=== PATIENT | female | born 1960 | race Caucasian/White ===

== ENCOUNTER 2016-05-04 17:26 | Emergency (ER) | payer MEDICAID ==
[~2016-05-04] VITALS: Ht 170.2 cm; Wt 56.7 kg
[~2016-05-04 17:26] MED LIST: LORA2TAB PO; QUET300T2 PO
--- NOTE | 2016-05-04 18:17 | NUR ---
PT IS IN ROOM #2B WAITING FOR ER MD EVALUATION.
[2016-05-04] MEDS ORDERED: CEFTRIAXONE 500 MG VIAL IM ONE (18:30)
[2016-05-04] MEDS ORDERED: AZITHROMYCIN 250 MG TABLET PO ONE (18:30)
--- NOTE | 2016-05-04 18:46 | NUR ---
PT WAS D/C TO HOME. D/C INSTRUCTIONS GIVEN TO THE PT.
[2016-05-04 18:47] VITALS: BP 135/78
[2016-05-04] MEDS ORDERED: AZITHROMYCIN 250 MG TABLET ONE (18:47)
[2016-05-04] MEDS ORDERED: CEFTRIAXONE 1 G VIAL ONE (18:48)
[2016-05-04] MEDS ORDERED: LIDOCAINE HCL 2% 20 ML VIAL ONE (18:48)
== END 2016-05-04 18:47 | disposition home or self-care (01) ==
LOC: ER 17:31
DX: F41.9 Anxiety disorder, unspecified (principal); F10.20 Alcohol dependence, uncomplicated; F19.10 Other psychoactive substance abuse, uncomplicated; Z88.6 Allergy status to analgesic agent
CPT/HCPCS: 96372; 99284; A4663; J0696; J3490; Q0144

== ENCOUNTER 2017-03-03 14:14 | Emergency (ER) | payer OTHER ==
[~2017-03-03] VITALS: Ht 170.2 cm; Wt 51.3 kg
--- NOTE | 2017-03-03 14:20 | NUR ---
Patient says that she lost her prescription & the empty bottles for ativan & restoril. MD to evaluate at this time.
--- NOTE | 2017-03-03 15:26 | NUR ---
Patient discharged to home in stable conditon. Written and verbal after care instructions given to patient. Patient verbalizes understanding of instructions.
== END 2017-03-03 15:28 | disposition home or self-care (01) ==
LOC: ER 14:15
DX: Z76.0 Encounter for issue of repeat prescription (principal); F41.9 Anxiety disorder, unspecified
CPT/HCPCS: A4663